=== PATIENT | male | born 2000 | race Caucasian/White ===

== ENCOUNTER 2022-10-09 23:09 | Emergency (ER) | payer OTHER, SELFPAY ==
[2022-10-09 23:42] VITALS: BP 151/89; PULSE 73; RESP 16; TEMP 37; O2SAT 98; BMI 30.4
--- NOTE | 2022-10-10 01:43 | ED.SKABFB ---
HPI - Skin/Abscess/Foreign Bdy General Chief complaint: Skin/Abscess/Foreign Body Stated complaint: Lip infectn Time Seen by Provider: 10/09/22 23:45 Source: patient Mode of arrival: Ambulatory Limitations: no limitations History of Present Illness HPI narrative: Otherwise healthy 22-year-old gentleman was seen urgent care earlier today with complaints of lip swelling and concern for infection. Apparently had a small pimple on his right upper lip that he was picking at after that noticed increased swelling. In urgent care this morning he was started on clindamycin 300 mg capsules 4 times a day for 10 days and given mupirocin ointment. 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 He comes in tonight because the lip is more swollen and he is somewhat concerned. It is tender because of the swelling but not otherwise painful. He is not having any fevers or chills. There is no airway involvement. There is no swelling over the maxilla and no involvement of the TMJ. Related Data Previous Rx's Medication Instructions Recorded clindamycin HCl 300 mg capsule 300 mg PO QID 10 days #40 caps 10/09/22 mupirocin 2 % topical ointment 1 applic topical TID #15 grams 10/09/22 valacyclovir 1 gram tablet 2,000 mg PO BID #4 tabs 10/10/22 Allergies Allergy/AdvReac Type Severity Reaction Status Date / Time No Known Drug Allergies Allergy Unverified 10/09/22 18:56 Review of Systems Review of Systems Narrative: Pertinent positive and negative findings as per HPI Patient History Social History Smoking Status: Never smoker Smoking Status: Never smoker alcohol intake frequency: a few times a week Substance Use Type: does not use Exam Initial Vital Signs Initial Vital Signs: Vital Signs Temperature 98.6 F 10/09/22 23:42 Pulse Rate 73 10/09/22 23:42 Respiratory Rate 16 10/09/22 23:42 Blood Pressure 151/89 H 10/09/22 23:42 Pulse Oximetry 98 10/09/22 23:42 Oxygen Delivery Method Room Air 10/09/22 23:42 General: Alert appropriate in no acute distress HEENT: He has a small area of irritation above his upper lip that appears more vesicular than erythematous. There is quite a bit of just edema to the upper lip itself. There is no erythema extending up onto the cheek. No abscesses or buccal irritation on the inner side of the lip. He is able to open his jaw fully. There is no cervical adenopathy. Respiratory: Able to speak in full sentences, no obvious respiratory distress Skin: No obvious rashes, warm and dry Neurologic: Grossly intact no obvious asymmetries or abnormalities Psych: appropriate insight and affect, cooperative Course Vital Signs Vital signs: Vital Signs - 8 hr 10/09/22 23:42 Temperature 98.6 F Pulse Rate 73 Respiratory Rate 16 Blood Pressure 151/89 H Pulse Oximetry 98 Oxygen Delivery Method Room Air MDM - Skin/Abscess/Foreign Bdy MDM Narrative Medical decision making narrative: CC: Lip swelling Complicating co-morbidities: Prior history of cold sores Data collected from: patient, Medical records reviewed: Notes from urgent care for and 1025 are reviewed Differential considered: Herpes outbreak, abscess, developing impetigo, Exam documented above, pertinent findings include: Swelling to the right side of the upper lip, vesicular lesion developing, minor irritation around the pimple, no palpable abscess and no obvious extending cellulitis Lab Test are not indicated with today's exam Discussion: I suspect that this gentleman has both a superficial bacterial infection that may be spreading and has exacerbated a herpes flare which is causing the vesicular lesion and worsening swelling. Will approach this from couple different directions. Have suggested a shot of ceftriaxone. He was prescribed clindamycin 300 mg 4 times a day for 10 days which is probably more than required. When he went to fill prescription pharmacies were closed he returned to the walk-in clinic and they gave him a dose of Bactrim and he was told that they would call in a prescription for Bactrim rather than clindamycin. 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 I think that the cold sore is much more contributory to his overall symptoms and Will place him on valacyclovir and have given him a single dose of oral dexamethasone to help with swelling. Reviewed signs or symptoms of developing or spreading abscess and reasons return to the emergency department he is safe for discharge. Discharge Plan Departure Patient Disposition: Home Clinical Impression: Cold sore Cellulitis Qualifiers: Site of cellulitis: face Qualified Code(s): L03.211 - Cellulitis of face Instructions: DI for Cellulitis -- Adult, DI for Cold Sores Activity Restrictions/Additional Instructions: Thank you for coming in today I suspect that your lip swelling is a developing bacterial infection after irritating the pimple over lip. With the increased swelling and irritation I suspect that you are also developing a cold sore outbreak. In the emergency department you are given a shot of antibiotic, a single dose of steroid (that will last approximately 3 days) and a 1st dose of antiviral medicine To help with the cold sores. Please complete the course of the valacyclovir, I have given you refills and would suggest that you have another prescription waiting in the medicine cabinet to use should you develop another episode of cold sore. Begin this medication as soon as you since the fullness/burning/tenderness associated with cold sores. Using the topical antibiotic is going to be appropriate. Using vaseline or such over your swollen lip with help with the stretcing and discomfort overall With the shot of antibiotic that you are given in the emergency department and no evidence for obvious abscess or cellulitis I do not think that you need to fill the antibiotic prescription from urgent care at all. If you find that you are getting worse or develop any new symptoms, please feel free to return to the emergency department for further evaluation. Prescriptions: New valacyclovir 1 gram tablet 2,000 mg PO BID Qty: 4 8RF Rx Instructions: take at onset of cold sore No Action clindamycin HCl 300 mg capsule 300 mg PO QID 10 Days Qty: 40 0RF mupirocin 2 % ointment 1 applic topical TID Qty: 15 0RF Referrals: Miscellaneous,Doctor, MD [Primary Care Provider] - Stand Alone Forms: Patient Portal/API
[2022-10-10] MEDS: ACYCLOVIR 400 MG TABLET PO (02:23)
[2022-10-10] MEDS: cefTRIAXone 2,000 MG VIAL 1000 MG IM (02:23)
[2022-10-10] MEDS: dexAMETHasone 4 MG TABLET 12 MG PO (02:23)
[2022-10-10] MEDS: LIDOCAINE 1% (PF) 5 ML 4.2 ML INJ (02:24)
[2022-10-10 02:38] VITALS: BP 164/95; PULSE 79; RESP 16; O2SAT 97
== END 2022-10-10 02:42 | disposition home or self-care (01) ==
PROVIDERS: Emergency Provider Emergency Medicine
DX: L03.211 Cellulitis of face (principal); B00.1 Herpesviral vesicular dermatitis
CPT/HCPCS: 96372; 99283; J0696